=== PATIENT | male | born 1990 | race Caucasian/White ===

== ENCOUNTER 2021-01-21 10:47 | Emergency (ER) | payer MEDICAID ==
[~2021-01-21] VITALS: Ht 180.3 cm; Wt 109.1 kg
[~2021-01-21 10:47] MED LIST: CEPHALEXIN500 M1 PO; LORTAB 5/500 501 TAB PO; NO HOME MEDICATIONS; NORCO 325 MG-51 TAB PO
[2021-01-21 10:55] VITALS: TEMP 98.5
[2021-01-21] MEDS ORDERED: AMOXICILLIN 8751 TAB PO (11:08)
[2021-01-21 11:15] VITALS: BP 145/87; PULSE 70
== END 2021-01-21 11:15 | disposition home or self-care (01) ==
LOC: COL.ER 10:47
DX: K02.9 Dental caries, unspecified (principal)